=== PATIENT | female | born 1985 | race Caucasian/White ===

== ENCOUNTER 2020-08-11 05:12 | Emergency (ER) | payer MEDICAID ==
[~2020-08-11] VITALS: Ht 165.1 cm; Wt 136.0 kg
[2020-08-11 06:25] LABS: BASOPHILS % 0.5 % (0.0-2.0); HEMOGLOBIN. 12.5 g/dL (12.0-16.0); LYMPHOCYTES % 26.2 % (20.0-50.0); MEAN CORPUSCULAR VOLUME 85.5 fL (81.0-99.0); MEAN PLATELET VOLUME 10.5 fl (7.4-10.4); MONOCYTES % 6.3 % (2.0-8.0); PLATELET 219 x1000/uL (130-400); RED BLOOD CELL COUNT 4.32 mill/uL (4.2-5.4); RED CELL DISTRIBUTION WIDTH 13.8 % (11.6-14.6)
[2020-08-11 06:30] LABS: CHLORIDE 106 mEq/L (98-107)
[2020-08-11 06:33] LABS: ETHANOL BLOOD < 10 mg/dL
[2020-08-11 07:48] LABS: HCG SCREEN NEGATIVE
[2020-08-11 13:32] LABS: CLARITY URINE TURBID (CLEAR); COLOR URINE YELLOW (YELLOW); KETONES URINE TRACE (NEGATIVE); LEUKOCYTE ESTERASE URINE 2+ (NEGATIVE); NITRITE URINE POSITIVE (NEGATIVE); OCCULT BLOOD URINE NEGATIVE (NEGATIVE); PH URINE 7.5 (4.5-8.0); PROTEIN URINE 1+ (NEGATIVE); SPECIFIC GRAVITY URINE 1.021 (1.005-1.030)
[2020-08-11 13:59] LABS: OPIATES URINE SCREEN NEGATIVE (NEGATIVE)
[2020-08-11 14:01] LABS: *AMPHETAMINES SCREEN URINE NEGATIVE (NEGATIVE); *BARBITURATES SCREEN URINE NEGATIVE (NEGATIVE); *BENZODIAZEPINES SCREEN URINE NEGATIVE (NEGATIVE); *COCAINE SCREEN URINE NEGATIVE (NEGATIVE); METHADONE URINE SCREEN NEGATIVE (NEGATIVE); PHENCYCLIDINE URINE SCREEN NEGATIVE (NEGATIVE)
[2020-08-11 14:15] LABS: CANNABINOID URINE SCREEN PRESUMTIVE POSITIVE (NEGATIVE)
[2020-08-11] MEDS ORDERED: AMOX-494 MT (17:32)
[2020-08-11 18:00] VITALS: BP 124/88
[2020-08-11] MEDS ORDERED: METRONIDAZOLE 500MG TABLET PO NR (19:30)
== END 2020-08-11 18:30 | disposition home or self-care (01) ==
LOC: EDBD 05:30 → ER 05:30
DX: T40.7X1A Poisoning by cannabis (derivatives), accidental (unintentional), initial encounter (principal); G92 Toxic encephalopathy; N30.00 Acute cystitis without hematuria; R03.0 Elevated blood-pressure reading, without diagnosis of hypertension; Y92.488 Other paved roadways as the place of occurrence of the external cause
CPT/HCPCS: 36415; 80053; 80305; 80307; 80320; 80329; 81003; 82962; 84443; 84703; 85025; 93005; 99285; G0480

== ENCOUNTER 2020-08-11 18:51 | Emergency (ER) | payer SELFPAY ==
[~2020-08-11] VITALS: Ht 170.2 cm; Wt 95.0 kg
[~2020-08-11 18:51] MED LIST: AMOX-494 MT
[2020-08-11] MEDS ORDERED: CEFTRIAXONE SODIUM 1 G/VIAL IM ONE (19:30)
[2020-08-11] MEDS ORDERED: METRONIDAZOLE 500MG TABLET PO ONE (19:30)
[2020-08-12 01:00] VITALS: BP 111/60
== END 2020-08-12 02:36 | disposition home or self-care (01) ==
LOC: ER 18:51
DX: R45.851 Suicidal ideations (principal); F12.10 Cannabis abuse, uncomplicated; Z88.0 Allergy status to penicillin
CPT/HCPCS: 96372; 99283; J0696